=== PATIENT | female | born 1970 | race Caucasian/White ===

== ENCOUNTER 2020-09-16 16:12 | Outpatient (REF) | payer MEDICAID, SELFPAY ==
[2020-09-16 17:17] LABS: MANUAL DIFF FLAG NO
[2020-09-16 17:21] LABS: Basophils Absolute Auto 0.1 X10*3/uL (0.0-0.2); Basophils Percent Auto 1.3 % (0-2); Eosinophils Absolute Auto 0.2 X10*3/uL (0.0-0.4); Eosinophils Percent Auto 2.7 % (0-4); Hematocrit 39.1 % (37-47); Hemoglobin 12.8 g/dl (12.0-16.0); Imm Gran Abs Auto 0.02 X10*3/uL (0.00-0.03); Imm Gran Pct Auto 0.3 % (0.0-0.4); Lymphocytes Absolute Auto 2.5 X10*3/uL (1.2-4.9); Lymphocytes Percent Auto 39.6 % (20-40); Mean Corpuscular HGB Conc 32.7 g/dl (31.0-35.0); Mean Corpuscular Hemoglobin 30.5 pg (27.0-33.0); Mean Corpuscular Volume 93.3 fL (80-98); Mean Platelet Volume 9.9 fL (9.4-12.3); Monocytes Absolute Auto 0.3 X10*3/uL (0.1-1.2); Monocytes Percent Auto 5.2 % (2-11); Neutrophils Absolute Auto 3.3 X10*3/uL (2.0-8.3); Neutrophils Percent Auto 50.9 % (45-73); Platelet Count 348 X10*3/uL (160-400); Red Blood Count 4.19 X10*6/uL (4.20-5.50); Red Cell Distribution Width 12.8 % (11.0-16.0); White Blood Count 6.4 X10*3/uL (4.8-10.8)
[2020-09-16 18:05] LABS: Thyroid Stimulating Hormone 1.89 uIU/mL (0.32-4.0)
== END 2020-09-16 16:13 | disposition home or self-care (01) ==
LOC: HO.LAB 16:12
PROVIDERS: PCP Internal Medicine; Visit Provider Internal Medicine
DX: F32.89 Other specified depressive episodes (principal); F41.8 Other specified anxiety disorders; R00.2 Palpitations
CPT/HCPCS: 36415; 84443; 85025

== ENCOUNTER 2020-10-05 11:20 | Outpatient (REF) | payer MEDICAID, SELFPAY ==
--- NOTE | ~2020-10-05 | XR_ITS ---
EXAMINATION: XR SACRUM AND COCCYX CLINICAL INFORMATION: Pain COMPARISON: Lumbar spine x-ray July 2015 TECHNIQUE: 2 views of the sacrum and 2 views of the coccyx were obtained. FINDINGS: There are no fractures. No bone, joint or soft tissue abnormality is demonstrated. XR/XR sacrum coccyx min 2V IMPRESSION: Unremarkable examination.
== END 2020-10-05 11:21 | disposition home or self-care (01) ==
LOC: HO.XRAY 11:20
PROVIDERS: PCP Internal Medicine; Visit Provider Internal Medicine
DX: M53.3 Sacrococcygeal disorders, not elsewhere classified (principal)
CPT/HCPCS: 72220

== ENCOUNTER 2020-10-06 17:32 | Emergency (ER) | payer MEDICAID, SELFPAY ==
[2020-10-06 18:49] VITALS: BP 97/66; PULSE 94; RESP 16; TEMP 36.7; O2SAT 100; BMI 22.2
--- NOTE | 2020-10-06 18:54 | ECG_ITS ---
Test Reason : CHEST PAIN Blood Pressure : / mmHG Vent. Rate : 094 BPM Atrial Rate : 094 BPM P-R Int : 110 ms QRS Dur : 062 ms QT Int : 334 ms P-R-T Axes : 066 040 037 degrees QTc Int : 417 ms Sinus rhythm with short NV Otherwise normal ECG No previous ECGs available Referred By: Generic ED Physician Electronically Signed By:BAM VOGEL
[2020-10-06 19:06] LABS: MANUAL DIFF FLAG NO
[2020-10-06 19:07] LABS: Basophils Absolute Auto 0.1 X10*3/uL (0.0-0.2); Basophils Percent Auto 0.8 % (0-2); Eosinophils Absolute Auto 0.1 X10*3/uL (0.0-0.4); Eosinophils Percent Auto 1.5 % (0-4); Hematocrit 40.4 % (37-47); Hemoglobin 13.2 g/dl (12.0-16.0); Imm Gran Abs Auto 0.02 X10*3/uL (0.00-0.03); Imm Gran Pct Auto 0.3 % (0.0-0.4); Lymphocytes Absolute Auto 2.4 X10*3/uL (1.2-4.9); Lymphocytes Percent Auto 31.2 % (20-40); Mean Corpuscular HGB Conc 32.7 g/dl (31.0-35.0); Mean Corpuscular Hemoglobin 30.3 pg (27.0-33.0); Mean Corpuscular Volume 92.9 fL (80-98); Mean Platelet Volume 9.4 fL (9.4-12.3); Monocytes Absolute Auto 0.5 X10*3/uL (0.1-1.2); Neutrophils Absolute Auto 4.6 X10*3/uL (2.0-8.3); Neutrophils Percent Auto 60.2 % (45-73); Platelet Count 358 X10*3/uL (160-400); Red Blood Count 4.35 X10*6/uL (4.20-5.50); Red Cell Distribution Width 12.5 % (11.0-16.0); White Blood Count 7.5 X10*3/uL (4.8-10.8)
[2020-10-06 19:27] LABS: Anion Gap 15 (12-20); Blood Urea Nitrogen 10 mg/dL (9-16); Carbon Dioxide 24 mmol/L (22-29); Chloride 104 mmol/L (96-108); Creatinine Clr Calc Pharmacy 56.6; Estimated Glomerular Filt Rate > 60; Glucose Random 99 mg/dL (60-115); Potassium 3.8 mmol/L (3.3-5.1); Sodium 139 mmol/L (135-145)
[2020-10-06 19:32] LABS: Troponin-I High Sensitivity < 3.5 ng/L (<3.5-17.0)
[2020-10-06 19:35] LABS: Glucose Urine UA NEG (NEG); Leukocyte Esterase Urine NEG (NEG); Nitrite Urine NEG (NEG); PH 6.5 (5.0-8.0); Urine Blood NEG (NEG); Urine Ketones NEG (NEG); Urine Protein NEG (NEG-TRACE)
[2020-10-06 19:36] LABS: Appearance Urine CLEAR; Color Urine STRAW
--- NOTE | 2020-10-06 19:49 | ED.BACK ---
HPI - Back Pain/Injury General Chief Complaint: Back Pain/Injury Stated Complaint: Back pain Time Seen by Provider: 10/06/20 17:44 Source: patient Mode of arrival: ambulatory Limitations: no limitations History of Present Illness HPI Narrative: feels a bump on her back. Patient also complaining of palpitations at night MD elicited complaint: back pain Pertinent past history: prior back pain Onset (ago): week(s) Timing: constant Severity: mild Location: lumbar spine Associated symptoms: denies other symptoms Related Data Previous Rx's Medication Instructions Recorded cephalexin [Keflex] 500 mg PO QID #40 cap 10/06/20 Allergies Allergy/AdvReac Type Severity Reaction Status Date / Time No Known Allergies Allergy Verified 10/06/20 19:55 Review of Systems Constitutional: Constitutional: Reports no additional constitutional complaints Eyes: Eyes: Reports no additional eye complaints ENT: Denies dizziness Cardiovascular: Cardiovascular: Reports no additional cardiovascular complaints Respiratory: Respiratory: Reports as per HPI Gastrointestinal: Gastrointestinal: Reports no additional gastrointestinal complaints Genitourinary: Genitourinary: Reports no additional female genitourinary complaints Musculoskeletal: Musculoskeletal: Reports no additional musculoskeletal complaints Integumentary/Breasts: Skin/Breast: Denies rash Neurologic: Reports system reviewed and no additional complaints, except as documented, Denies dizziness and Denies Sensory deficit (Neuro) Psychiatric: Psychiatric: Denies anxiety PMFSH Past Medical History Medical History No active medical problems Social History Social History Alcohol intake: never Smoked in Last 30 Days: No Use of substances other than those prescribed or required for medical reasons: No Advance Directives: No Advance Directives Information Provided: Yes Physical Exam Vital Signs: Vital Signs: Last Vital Signs Temp 98.0 F 10/06/20 18:49 Pulse 94 10/06/20 18:49 Resp 16 10/06/20 18:49 BP 97/66 10/06/20 18:49 Pulse Ox 100 10/06/20 18:49 Body Mass Index 22.2 Const: General: healthy appearing Nutritional Appearance: average body habitus Orientation/consciousness: oriented to person and patient oriented x3 Limitations: no limitations HENMT: Head: Yes normal to inspection Ears: external ears normal General nose exam: Normal external nose present Mouth: Normal oral and palatal mucosa present and oropharynx normal Throat: Yes posterior oropharynx normal Eyes: General: appearance normal, both eyes and all related structures Neck: Other: supple Neck: Yes normal visual inspection Chest: Chest palpation & inspection: normal inspection of the chest Resp: Auscultation: clear to auscultation bilaterally Cardio: Jugular venous distension: no JVD Rate: regular rate Rhythm: regular rhythm Heart sounds: S1 normal heart sound present and S2 normal heart sound present GI: Inspection: Yes normal to inspection Palpation (GI): Soft to palpation, nontender and No hepatosplenomegaly present Auscultation: normal bowel sounds : General: Yes no CVA tenderness Back/Spine/Pelvis: Back: no CVA tenderness Skin: Other: left buttock with old scar now with induration Neuro: General: oriented to person and patient oriented x3 Cranial nerves: Yes CN's II-XII intact bilaterally Motor exam (neuro): 5/5 motor strength present throughout Sensory Exam: No Sensory deficit (Neuro) Extrem: General: Yes normal to inspection Psych: Appearance: grossly normal MDM - Back Pain/Injury MDM Narrative Medical decision making narrative: patient with a 20 years scar due to buttock abscess now with pain and slight induration to the area. Lab Data Result diagrams: 10/06/20 19:01 10/06/20 19:01 Labs: Lab Results 10/06/20 10/06/20 10/06/20 Range/Units 19:01 19:01 19:01 WBC 7.5 (4.8-10.8) X10*3/uL RBC 4.35 (4.20-5.50) X10*6/uL Hgb 13.2 (12.0-16.0) g/dl Hct 40.4 (37-47) % MCV 92.9 (80-98) fL MCH 30.3 (27.0-33.0) pg MCHC 32.7 (31.0-35.0) g/dl RDW 12.5 (11.0-16.0) % Plt Count 358 (160-400) X10*3/uL MPV 9.4 (9.4-12.3) fL Immature Gran % (Auto) 0.3 (0.0-0.4) % Neut % (Auto) 60.2 (45-73) % Lymph % (Auto) 31.2 (20-40) % [place] % (Auto) 6.0 (2-11) % Eos % (Auto) 1.5 (0-4) % Baso % (Auto) 0.8 (0-2) % Lymph # (Auto) 2.4 (1.2-4.9) X10*3/uL [place] # (Auto) 0.5 (0.1-1.2) X10*3/uL Eos # (Auto) 0.1 (0.0-0.4) X10*3/uL Baso # (Auto) 0.1 (0.0-0.2) X10*3/uL Abs Immat Gran (auto) 0.02 (0.00-0.03) X10*3/uL Absolute Neuts (auto) 4.6 (2.0-8.3) X10*3/uL Absolute Nucleated RBC 0.000 (0.0-0.012) X10*3/uL Nucleated RBC % (auto) 0.0 (0.0-0.2) /100WBC Hold Blue Top SEE NOTE Sodium 139 (135-145) mmol/L Potassium 3.8 (3.3-5.1) mmol/L Chloride 104 (96-108) mmol/L Carbon Dioxide 24 (22-29) mmol/L Anion Gap 15 (12-20) BUN 10 (9-16) mg/dL Creatinine 0.81 (0.5-1.4) mg/dL Estim Creat Clear Calc 56.6 Estimated GFR > 60 Random Glucose 99 (60-115) mg/dL Calcium 9.0 (8.4-10.2) mg/dL Troponin I High Sens (<3.5-17.0) ng/L Urine Color Urine Appearance Urine pH (5.0-8.0) Ur Specific [place] (1.005-1.025) Urine Protein (NEG-TRACE) MG/DL Urine Glucose (UA) (NEG) MG/DL Urine Ketones (NEG) MG/DL Urine Blood (NEG) Urine Nitrite (NEG) Ur Leukocyte Esterase (NEG) 10/06/20 10/06/20 Range/Units 19:01 19:10 WBC (4.8-10.8) X10*3/uL RBC (4.20-5.50) X10*6/uL Hgb (12.0-16.0) g/dl Hct (37-47) % MCV (80-98) fL MCH (27.0-33.0) pg MCHC (31.0-35.0) g/dl RDW (11.0-16.0) % Plt Count (160-400) X10*3/uL MPV (9.4-12.3) fL Immature Gran % (Auto) (0.0-0.4) % Neut % (Auto) (45-73) % Lymph % (Auto) (20-40) % [place] % (Auto) (2-11) % Eos % (Auto) (0-4) % Baso % (Auto) (0-2) % Lymph # (Auto) (1.2-4.9) X10*3/uL [place] # (Auto) (0.1-1.2) X10*3/uL Eos # (Auto) (0.0-0.4) X10*3/uL Baso # (Auto) (0.0-0.2) X10*3/uL Abs Immat Gran (auto) (0.00-0.03) X10*3/uL Absolute Neuts (auto) (2.0-8.3) X10*3/uL Absolute Nucleated RBC (0.0-0.012) X10*3/uL Nucleated RBC % (auto) (0.0-0.2) /100WBC Hold Blue Top Sodium (135-145) mmol/L Potassium (3.3-5.1) mmol/L Chloride (96-108) mmol/L Carbon Dioxide (22-29) mmol/L Anion Gap (12-20) BUN (9-16) mg/dL Creatinine (0.5-1.4) mg/dL Estim Creat Clear Calc Estimated GFR Random Glucose (60-115) mg/dL Calcium (8.4-10.2) mg/dL Troponin I High Sens < 3.5 (<3.5-17.0) ng/L Urine Color STRAW Urine Appearance CLEAR Urine pH 6.5 (5.0-8.0) Ur Specific [place] 1.010 (1.005-1.025) Urine Protein NEG (NEG-TRACE) MG/DL Urine Glucose (UA) NEG (NEG) MG/DL Urine Ketones NEG (NEG) MG/DL Urine Blood NEG (NEG) Urine Nitrite NEG (NEG) Ur Leukocyte Esterase NEG (NEG) ECG Data Attestation: I personally reviewed and interpreted this ECG as follows: Interpretation: normal sinus rate of [address] or twave changes Discharge Plan Discharge Clinical Impression: Cellulitis and abscess of buttock Patient Disposition: Home, Self-Care Instructions: Cellulitis (ED) Additional Instructions: warm soaks 4 times a day Prescriptions: New cephalexin [Keflex] 750 mg capsule 500 mg PO QID Qty: 40 RF: 0 Referrals: Sara Carbajal MD [Primary Care Provider] - 2 days
[2020-10-06] MEDS: cephALEXin 500 MG CAPSULE PO (20:37)
[2020-10-06 20:38] LABS: UPreg QC Valid YES; Urine Pregnancy NEGATIVE (NEGATIVE)
== END 2020-10-06 20:42 | disposition home or self-care (01) ==
PROVIDERS: Physician Assistant Medical; Emergency Provider Emergency Medicine; PCP Internal Medicine
DX: L02.31 Cutaneous abscess of buttock (principal); L03.317 Cellulitis of buttock; Z79.899 Other long term (current) drug therapy
CPT/HCPCS: 36415; 80048; 81003; 81025; 84484; 85025; 93005; 99283; 99284

== ENCOUNTER → 2020-10-07 12:51 | Outpatient (BNVA) | payer MEDICAID, SELFPAY | PROVIDERS: PCP Internal Medicine; Visit Provider Internal Medicine Cardiovascular Disease | DX: R00.2 Palpitations (principal) | CPT/HCPCS: 99202 ==

== ENCOUNTER → 2020-11-03 16:03 | Outpatient (REF) | payer MEDICAID, SELFPAY ==
--- NOTE | 2020-11-04 10:30 | ECG_ITS ---
Hook-up date: 2020-11-03 16:10:00 Duration: 47:59:00 Test Indications: PALPITATIONS Medications: 405630 QRS complexes 329 Ventricular ectopics which represent <1 % of total QRS comp. 3003 Supraventricular ectopics which represent 1 % of total QRS comp. * Paced QRS complexs which represent % of total QRS comp. VENTRICULAR ECTOPY 307 Isolated 0 Bigeminal Cycles 11 Couplets 0 Runs 0 Beats in Runs * Beats LONGEST at * BPM at :: -- * Beats FASTEST at * BPM at :: -- SUPRAVENTRICULAR ECTOPY 619 Isolated 400 Couplets 321 Runs 1584 Beats in Runs 31 Beats LONGEST at 122 BPM at 18:45:58 2020-11-04 3 Beats FASTEST at 166 BPM at 17:29:03 2020-11-04 HEART RATES 66 MIN at 06:14:31 2020-11-05 89 AVG 162 MAX at 16:14:34 2020-11-03 LONGEST RR 1.1360 secs at 22:33:51 2020-11-04 S-T LEVELS Channel 1 - 128 mm at 16:10:00 2020-11-03 - 128 mm at 16:10:00 2020-11-03 Channel 2 - 128 mm at 16:10:00 2020-11-03 - 128 mm at 16:10:00 2020-11-03 Channel 3 - 128 mm at 03:52:91 -- - 128 mm at 03:52:91 Underlying rhythm is sinus; Average ventricular rate 89/min; range 66-162/min; About 32% of the time, ventricular rate >100/min; Frequent Premature atrial complexes (1%); isolated beats, couplets, several runs, longest 31 beats at 122/min; Occasional Premature ventricular complexes (<1%); Symptoms described as 'fast' could be from above but exact times don't correlate. Referred By: Sunil Hewitt Overread By: BAM VOGEL
== END ==
LOC: HO.CARD 16:03
PROVIDERS: PCP Internal Medicine; Visit Provider Internal Medicine Cardiovascular Disease
DX: R00.2 Palpitations (principal)
CPT/HCPCS: 93226

== ENCOUNTER → 2020-11-26 12:54 | Outpatient (REF) | payer MEDICAID, SELFPAY ==
--- NOTE | 2020-11-26 12:58 | CA_ITS ---
Transthoracic Echocardiogram Patient (Last, First, Middle): Lynda Soares, Gender: Female Date of : 1970 Age: 50 Procedure Date: 11/26/2020 Procedure Type: Transthoracic Echocardiogram Location: OP Height: 149.86 cm Weight: 49.9 kg BSA: 1.43 m2 Heart Rate: bpm BP: 110 / 60 mmHg Manager Of Selection And Assessment: CHERYL Diallo MD: Sunil Hewitt MD Symptoms: R00.2 - Palpitations Study Quality: Good Conclusions: - Normal biventricular function. - No significant valvular or pericardial pathology. Findings Left Ventricle Normal left ventricular size, thickness, systolic function, and wall motion. The visually estimated ejection fraction is between 55-60%. Diastolic function is normal for age. Right Ventricle Normal right ventricular cavity size and systolic function. Atria The left atrium is normal in size. Aortic Valve Normal aortic valve structure and function. There is no aortic valve stenosis. There is no aortic valve regurgitation. Mitral Valve Normal mitral valve structure and function. There is no mitral valve regurgitation. There is no mitral valve stenosis. Pulmonic Valve Normal pulmonic valve structure and function. There is no pulmonic valve regurgitation. Tricuspid Valve Normal tricuspid valve structure and function. There is no tricuspid valve regurgitation. Tricuspid regurgitation envelope is inadequate for calculation of right ventricular systolic pressure. Normal right atrial pressure. Great Vessels All visible segments of the aorta are normal in size. The visualized portions of the pulmonary artery and branches are normal. Venous The inferior vena cava is normal in size and collapses greater than 50% with inspiration. Pericardium/Pleural There is no evidence of pericardial effusion. Prior Study Comparison No prior study available for comparison. Measurements 2D Linear Measurements IVSd: 0.68 0.6-0.9/0.6-1.0 cm LVIDd: 4.00 3.9-5.3/4.2-5.9 cm LVIDd Index: 2.80 2.4-3.2/2.2-3.1 cm/m2 LVIDs: 2.83 2.0-3.6 cm LVPWd: 0.74 0.7-1.1 cm Ao Root: 3.10 2.1-3.5 cm LA Diam: 2.70 2.7-3.8/3.0-4.0 cm LAIDs Index: 1.89 1.5-2.3 cm/m2 LV Mass: 98.85 67-162/88-224 g LV Mass Index: 69.12 43-95/49-115 g/m2 LVOT Diam: 1.90 3.0+(-)1.3 cm Mitral Valve MV Pk E: 0.67 MV PK A: 0.45 MV Decel Time: 369.00 E/A: 1.50 E'Lateral: 12.80 E'Medial: 11.90 E/E' Med: 5.70 E/E' Lat: 5.30 PHT: 108.00 MVA PHT: 2.04 Decel Donley: 1.82 Aortic Valve AoV Pk Silas: 1.02 AoV Mn Silas: 0.76 AoV VTI: 0.22 AoV Pk Grad: 4.00 Aov Mn Grad: 2.00 ARIEL Cont.VTI: 2.47 LVOT LVOT Pk Silas: 0.89 LVOT Mn Silas: 0.60 LVOT VTI: 0.19 LVOT Pk Grad: 3.00 LVOT Mn Grad: 2.00 LVOT Diam: 1.90 LVOT Area: 2.84 Diastolic Function MV Pk E: 0.67 MV Pk A: 0.45 E/A: 1.50 E'Medial: 11.90 E/E' Med: 5.70 E' Laterial: 12.80 E/E' Lat: 5.30 Great Vessels Aorta Ao Root-2D: 3.10 2.0-3.7 cm Ao Asc: 2.60 2.1-3.4 cm Ao Arch: 2.40 Updated in Other Vendor System with Status of Final Sunil Hewitt MD electronically signed on 11/28/2020 3:02:09 PM with status of Final
== END ==
LOC: HO.CARD 12:54
PROVIDERS: Visit Provider Internal Medicine Cardiovascular Disease
DX: R00.2 Palpitations (principal)
CPT/HCPCS: 93306

== ENCOUNTER → 2021-01-10 15:00 | Outpatient (BNVA) | payer MEDICAID, SELFPAY | PROVIDERS: PCP Internal Medicine; Referring Provider Internal Medicine; Visit Provider Internal Medicine Cardiovascular Disease | DX: R00.2 Palpitations (principal); R00.0 Tachycardia, unspecified; I49.1 Atrial premature depolarization; Z79.899 Other long term (current) drug therapy | CPT/HCPCS: 99212 ==

== ENCOUNTER 2021-02-01 14:39 | Emergency (ER) | payer MEDICAID, SELFPAY ==
[2021-02-01 14:47] VITALS: PULSE 94; RESP 18; TEMP 37.2; O2SAT 98; BMI 22.2
--- NOTE | 2021-02-01 16:29 | ED.EAR ---
HPI - Ear Problem General Chief complaint: Ear Problems Stated complaint: r ear inj Time Seen by Provider: 02/01/21 16:21 Source: patient Mode of arrival: ambulatory Limitations: no limitations History of Present Illness HPI Narrative: Patient comes emergency room complaining of an injury to the right earlobe. Patient states earlier today she was breathing her dog, her lab got very excited to see her, the dog accidentally pulled the earring out by ripping through the skin. Patient states she is not sure if it the earring was pulled out with the dog's paw or the mouth. Patient denies fever or chills Related Data Previous Rx's Medication Instructions Recorded cephalexin [Keflex] 500 mg PO QID #40 cap 10/06/20 metoprolol succinate 25 mg 12.5 mg PO DAILY #30 tab 12/02/20 tablet,extended release 24 hr amoxicillin-pot clavulanate 1 tab PO BID #13 tab 02/01/21 [Augmentin] Allergies Allergy/AdvReac Type Severity Reaction Status Date / Time No Known Allergies Allergy Verified 02/01/21 14:47 Review of Systems Review of Systems: Constitutional : No Weight loss, No Fever, No Chills, No Night Sweats, No Fatigue, No Malaise ENT/Mouth : No Hearing loss, No Ear Pain, No Nasal Congestion, No Sinus Pain, No Hoarseness, No sore throat, No Rhinorrhea, No Swallowing Difficulty Eyes: No Eye Pain, No Swelling, No Redness, No Foreign Body, No Discharge, No Vision Changes Cardiovascular : No Chest Pain, No SOB, No Dyspnea on Exertion, No Orthopnea, No Edema, No Palpitations Respiratory : No Cough, No Sputum, No Wheezing, No Smoke Exposure, No Dyspnea Gastrointestinal : No Nausea, No Vomiting, No Diarrhea, No Constipation, No abdominal Pain, No Hematochezia, No Melena Genitourinary : no irregular bleeding, No Dysuria, No Urinary Frequency, No Hematuria, No Urinary Incontinence, No Urgency, No Flank Pain, No Urinary Flow Changes, No Hesitancy Musculoskeletal : No joint pain, No Myalgias, No Joint Swelling Skin : Earring stools/rib through the earlobe Neuro : No Weakness, No Numbness, No Paresthesias, No Loss of Consciousness, No Dizziness, No Headache Psych : No Anxiety/Panic, No Depression, No SI/HI/AH/VH, No Social Issues, Heme/Lymph: No Bruising, No Bleeding,No Lymphadenopathy Endocrine : No Polyuria, No Polydipsia, No Temperature Intolerance [facility] Past Medical History Medical History No active medical problems Surgical History History of removal of cyst Family History Family History (Updated 10/07/20 @ 13:08 by DARRICK Thurston) Mother Diabetes HTN (hypertension) Tachycardia Father Hypercholesteremia HTN (hypertension) Social History Social History (Updated 01/10/21 @ 15:10 by DARRICK Thurston) Alcohol intake: never Patient Tobacco Use Status: Never used Tobacco Advance Directives: No Advance Directives Information Provided: No Physical Exam Vital Signs: Vital Signs: Last Vital Signs Temp 98.9 F 02/01/21 14:47 Pulse 94 02/01/21 14:47 Resp 18 02/01/21 14:47 Pulse Ox 98 02/01/21 14:47 Body Mass Index 22.2 Appearance: Alert. Oriented X3. No acute distress. Eyes: Pupils equal, round and reactive to light. ENT: Pharynx normal. Neck: Normal inspection. Neck supple. No lymph nodes noted. No crepitus CVS: Normal heart rate and rhythm. Pulses normal. Normal S1 and S2 Respiratory: No respiratory distress. Breath sounds normal. No Wheezing. No rales Abdomen: Soft and nontender. No rigidity. No distention. good BS x4 Skin: Skin warm and dry. Laceration to the right earlobe, lower part of the earlobe split in a Y shape Extremities: No lower extremity edema. No lower extremity edema. No Lacerations. No Rash Neuro: Oriented X 3. No motor deficit. No sensory deficit. Moving all extermities. No slurred speech. Course Course Course Narrative: Patient tolerated well the procedure. Patient instructed to follow-up with her primary care physician or return to the emergency room for stitch removal. Patient was given a tetanus booster, 1st dose of Augmentin Procedures Laceration Laceration 1: Site: other (Ear lobe) Side (If applicable): right Size (cm): 2 Description: irregular Depth: [id number] Local Anesthetic: lidocaine 2% Amount of anesthesia used (mL): 2 Skin layer closed with: nylon Size (cm): 6-0 Number of sutures: 7 Technique: simple, interrupted Discharge Plan Discharge Clinical Impression: Laceration Patient Disposition: Home, Self-Care Instructions: Laceration (ED) Additional Instructions: If you see any signs of infection such as redness, pus drainage, if you have fever chills, please return immediately to the emergency room. Your stitches need to be removed in 7-10 days. You may go with her primary care physician or return to the emergency room. Please follow-up with your primary care physician tomorrow. If you have any worsening or new symptoms, please return to the emergency room or call 911 Prescriptions: New amoxicillin-pot clavulanate [Augmentin] 875-125 mg tablet 1 tab PO BID Qty: 13 RF: 0 No Action metoprolol succinate [Toprol XL] 25 mg tablet extended release 24 hr 12.5 mg PO DAILY Qty: 30 RF: 0 cephalexin [Keflex] 750 mg capsule 500 mg PO QID Qty: 40 RF: 0
[2021-02-01] MEDS: Lidocaine HCl 2 % MPF 5 ML VIAL INFILTRATI (16:36)
[2021-02-01] MEDS: Diphth,Pertus(ACell),Tet Adult 0.5 ML SYRINGE IM (16:36)
[2021-02-01] MEDS: Amoxicillin/Potassium Clav 875 MG TABLET PO (16:36)
== END 2021-02-01 17:18 | disposition home or self-care (01) ==
PROVIDERS: Emergency Provider Emergency Medicine; PCP Internal Medicine
DX: S01.311A Laceration without foreign body of right ear, initial encounter (principal); W54.8XXA Other contact with dog, initial encounter; Y93.9 Activity, unspecified; Y92.9 Unspecified place or not applicable; Y99.9 Unspecified external cause status
CPT/HCPCS: 12011; 90471; 90715; 99283; 99284

== ENCOUNTER 2021-02-10 13:03 | Emergency (ER) | payer MEDICAID, SELFPAY ==
[2021-02-10 13:16] VITALS: BP 104/63; PULSE 72; RESP 16; TEMP 36.6; O2SAT 100; BMI 22.2
--- NOTE | 2021-02-10 13:52 | ED.SKABFB ---
HPI - Skin/Abscess/Foreign Bdy General Chief complaint: Skin/Abscess/Foreign Body Stated complaint: suture removal Time Seen by Provider: 02/10/21 13:25 Source: patient Mode of arrival: ambulatory Limitations: no limitations History of Present Illness HPI narrative: Here for suture removal right ear. No complaints. Related Data Previous Rx's Medication Instructions Recorded cephalexin 750 mg capsule (Keflex) 500 mg PO QID #40 cap 10/06/20 metoprolol succinate 25 mg 12.5 mg PO DAILY #30 tab 12/02/20 tablet,extended release 24 hr (Toprol XL) amoxicillin 875 mg-potassium 1 tab PO BID #13 tab 02/01/21 clavulanate 125 mg tablet (Augmentin) Allergies Allergy/AdvReac Type Severity Reaction Status Date / Time No Known Allergies Allergy Verified 02/01/21 14:47 Review of Systems Review of Systems: Yes all other systems are reviewed and are negative Constitutional: Constitutional: Reports no additional constitutional complaints, Denies body ache(s), Denies chills, Denies fever(s), Denies headache(s) and Denies weakness Eyes: Eyes: Reports no additional eye complaints and Denies change in vision ENT: Reports system reviewed and no additional complaints, except as documented, Denies dizziness, Denies headache(s), Denies nasal congestion, Denies nasal discharge and Denies neck pain Cardiovascular: Cardiovascular: Reports no additional cardiovascular complaints, Denies chest pain, Denies leg edema and Denies dyspnea Respiratory: Respiratory: Reports no additional respiratory complaints, Denies cough and Denies dyspnea Gastrointestinal: Gastrointestinal: Reports no additional gastrointestinal complaints, Denies abdominal pain, Denies diarrhea, Denies nausea and Denies vomiting Genitourinary: Genitourinary: Reports no additional female genitourinary complaints and Denies urinary incontinence Musculoskeletal: Musculoskeletal: Reports no additional musculoskeletal complaints, Denies back pain, Denies arthralgias, Denies joint swelling, Denies neck pain, Denies numbness and Denies tingling Integumentary/Breasts: Skin/Breast: Reports system reviewed and no additional complaints, except as docu and Denies rash Neurologic: Reports system reviewed and no additional complaints, except as documented, Denies Abnormal speech present, Denies dizziness, Denies headache(s), Denies numbness, Denies tingling and Denies weakness [facility] Past Medical History Attestation statement: The following information was validated with the patient. Source: old records reviewed and nursing notes reviewed Medical History No active medical problems Surgical History History of removal of cyst Family History Family History Mother Diabetes HTN (hypertension) Tachycardia Father Hypercholesteremia HTN (hypertension) Social History Social History (Updated 01/10/21 @ 15:10 by DARRICK Thurston) Alcohol intake: never Patient Tobacco Use Status: Never used Tobacco Advance Directives: No Advance Directives Information Provided: No Patient : No Physical Exam Vital Signs: Vital Signs: Last Vital Signs Temp 97.8 F 02/10/21 13:16 Pulse 72 02/10/21 13:16 Resp 16 02/10/21 13:16 BP 104/63 02/10/21 13:16 Pulse Ox 100 02/10/21 13:16 Body Mass Index 22.2 Const: General: cooperative, healthy appearing, comfortable and no acute distress Orientation/consciousness: patient oriented x3 Limitations: no limitations HENMT: Head: Yes normal to inspection Ears: hearing grossly normal bilaterally Outer ear/TM images: 1. sutures present No drainage or redness General nose exam: Normal external nose present Face and sinus: Yes normal facial exam Mouth: Normal oral and palatal mucosa present Throat: Yes posterior oropharynx normal Eyes: General: appearance normal, both eyes and all related structures Pupils: Equal, round and reactive pupils present Neck: Neck: Yes normal visual inspection Chest: Chest palpation & inspection: normal inspection of the chest Resp: Effort & Inspection: normal respiratory effort Auscultation: clear to auscultation bilaterally Cardio: Rate: regular rate Rhythm: regular rhythm Peripheral pulses: Peripheral pulses 2+ throughout GI: Inspection: Yes normal to inspection Palpation (GI): Soft to palpation and nontender Auscultation: normal bowel sounds Back/Spine/Pelvis: Thoracic/Lumbar Spine: thoracic and lumbar spine normal to inspection Skin: General skin exam: no rashes or lesions noted Neuro: General: patient oriented x3, no focal motor deficits and normal sensation to monofilament Cranial nerves: Yes Equal, round and reactive pupils present Cognition (Neuro): normal cognition Speech: No Abnormal speech present Gait exam (Neuro): Normal gait present Motor exam (neuro): 5/5 motor strength present throughout Extrem: General: Yes normal to inspection Course Course Course Narrative: See procedure note Procedures Procedure Narrative Procedure Narrative: Seven sutures removed from right ear lobe Discharge Plan Discharge Clinical Impression: Visit for suture removal Patient Disposition: Home, Self-Care Instructions: Stitches Removal (ED) Additional Instructions: apply neosporin or polysporin daily Prescriptions: No Action metoprolol succinate [Toprol XL] 25 mg tablet extended release 24 hr 12.5 mg PO DAILY Qty: 30 RF: 0 amoxicillin-pot clavulanate [Augmentin] 875-125 mg tablet 1 tab PO BID Qty: 13 RF: 0 cephalexin [Keflex] 750 mg capsule 500 mg PO QID Qty: 40 RF: 0 Referrals: Sara Carbajal MD [Primary Care Provider] - 2 days ED PhysicianRadames [Physician] - 2 days (as needed) Interventions: ED Discharge Assessment Last Done: 02/10/21 13:46 Discharge Date/Time: 02/10/21 13:48
== END 2021-02-10 13:48 | disposition home or self-care (01) ==
LOC: HO.ED 13:38
PROVIDERS: Emergency Provider Emergency Medicine; PCP Internal Medicine
DX: Z48.02 Encounter for removal of sutures (principal)
CPT/HCPCS: 99283

== ENCOUNTER 2021-02-18 13:46 | Outpatient (REF) | payer MEDICAID, SELFPAY ==
[2021-02-18 14:39] LABS: MANUAL DIFF FLAG NO
[2021-02-18 14:44] LABS: Basophils Absolute Auto 0.1 X10*3/uL (0.0-0.2); Basophils Percent Auto 1.2 % (0-2); Eosinophils Absolute Auto 0.1 X10*3/uL (0.0-0.4); Eosinophils Percent Auto 2.1 % (0-4); Hematocrit 40.1 % (37-47); Hemoglobin 13.1 g/dl (12.0-16.0); Imm Gran Abs Auto 0.03 X10*3/uL (0.00-0.03); Imm Gran Pct Auto 0.5 % (0.0-0.4); Lymphocytes Absolute Auto 2.3 X10*3/uL (1.2-4.9); Lymphocytes Percent Auto 38.4 % (20-40); Mean Corpuscular HGB Conc 32.7 g/dl (31.0-35.0); Mean Corpuscular Hemoglobin 30.5 pg (27.0-33.0); Mean Corpuscular Volume 93.3 fL (80-98); Mean Platelet Volume 9.8 fL (9.4-12.3); Monocytes Absolute Auto 0.5 X10*3/uL (0.1-1.2); Monocytes Percent Auto 7.7 % (2-11); Neutrophils Percent Auto 50.1 % (45-73); Platelet Count 327 X10*3/uL (160-400); White Blood Count 6.1 X10*3/uL (4.8-10.8)
[2021-02-18 15:10] LABS: Alanine Aminotransferase 9 U/L (0-31); Alkaline Phosphatase 75 U/L (39-117); Anion Gap 11 (12-20); Aspartate Amino Transferase 19 U/L (5-31); Bilirubin Total 0.3 mg/dL (0.0-1.0); Blood Urea Nitrogen 8 mg/dL (9-16); Calcium 9.1 mg/dL (8.4-10.2); Carbon Dioxide 28 mmol/L (22-29); Chloride 104 mmol/L (96-108); Cholesterol 229 mg/dL; Estimated Glomerular Filt Rate > 60; Glucose Random 71 mg/dL (60-115); HDL Cholesterol 68 mg/dL; LDL Cholesterol Calculated 127 mg/dl; Potassium 4.4 mmol/L (3.3-5.1); Sodium 139 mmol/L (135-145); Triglycerides 172 mg/dL
[2021-02-20 18:36] LABS: TS Negative Control Passed; TS Panel A 3; TS Panel B 1; TS Positive Control Passed; TSpotTB Negative (SeeBelow)
== END 2021-02-18 13:47 | disposition home or self-care (01) ==
LOC: HO.LAB 13:46
PROVIDERS: PCP Internal Medicine; Visit Provider Internal Medicine
DX: Z00.00 Encounter for general adult medical examination without abnormal findings (principal); Z13.31 Encounter for screening for depression; Z11.1 Encounter for screening for respiratory tuberculosis; R00.2 Palpitations
CPT/HCPCS: 36415; 80053; 80061; 85025; 86481

== ENCOUNTER → 2021-04-11 12:14 | Outpatient (BNVA) | payer MEDICAID, SELFPAY | PROVIDERS: PCP Internal Medicine; Visit Provider Physician Assistant | DX: Z12.11 Encounter for screening for malignant neoplasm of colon (principal) | CPT/HCPCS: 99202 ==

== ENCOUNTER → 2021-10-20 14:31 | Outpatient (BNVA) | payer MEDICAID, SELFPAY | PROVIDERS: PCP Internal Medicine; Referring Provider Internal Medicine; Visit Provider Internal Medicine Cardiovascular Disease | DX: R00.2 Palpitations (principal) | CPT/HCPCS: 93005; 99212 ==

== ENCOUNTER 2022-11-04 10:44 | Emergency (ER) | payer OTHER, SELFPAY ==
[2022-11-04 11:13] VITALS: BP 123/78; PULSE 92; RESP 18; TEMP 36.2; O2SAT 99; BMI 22.4
--- NOTE | 2022-11-04 12:30 | ED.EXTPRO ---
HPI - Extremity Problem General Chief complaint: Extremity Injury, Upper Stated complaint: pain in both arms, cant lift them Time Seen by Provider: 11/04/22 12:09 History of Present Illness HPI Narrative: Patient complains of pain in bilateral upper arms, she has had no injury, it did begin after working out in the gym but she is not sure if that is connected She denies any numbness weakness or tingling she denies any joint swelling she denies any redness or warmth or fever, no other muscle or joint pains in any other limb Related Data Previous Rx's Medication Instructions Recorded metoprolol succinate 25 mg 12.5 mg PO DAILY #30 tabs 12/02/20 tablet,extended release 24 hr (Toprol XL) bisacodyl 5 mg tablet,delayed 10 mg PO ONCE colonoscopy prep 1 04/11/21 release (Dulcolax (bisacodyl)) day #2 tabs polyethylene glycol 3350 17 238 g PO ONCE 1 day #238 grams 04/11/21 gram/dose oral powder (Miralax) acetaminophen 500 mg tablet 1,000 mg PO TID PRN pain #30 tabs 11/04/22 ibuprofen 800 mg tablet 800 mg PO Q8H PRN pain #20 tabs 11/04/22 oxycodone 5 mg tablet 5 mg PO Q6H PRN pain #7 tabs 11/04/22 Allergies Allergy/AdvReac Type Severity Reaction Status Date / Time morphine AdvReac Anxiety Verified 11/04/22 11:18 FOR[facility] Past Medical History Source: nursing notes reviewed Medical History No active medical problems Surgical History History of removal of cyst Family History Family History Mother Diabetes HTN (hypertension) Tachycardia Father Hypercholesteremia HTN (hypertension) Social History Social History Household Members Other:: single 1 son Alcohol intake: never Patient Tobacco Use Status: Never used Tobacco Advance Directives: No Advance Directives Information Provided: No Physical Exam Vital Signs: Vital Signs: Last Vital Signs Temp 97.1 F 11/04/22 11:13 Pulse 92 11/04/22 11:13 Resp 18 11/04/22 11:13 BP 123/78 11/04/22 11:13 Pulse Ox 99 11/04/22 11:13 O2 Del Method Room Air 11/04/22 11:13 BMI result Body Mass Index 22.4 General appearance comfortable no distress The head is normocephalic atraumatic Neck is supple and nontender Respiratory no distress The back full range of motion without evidence of discomfort The extremities full range of motion x4 with out swelling or deformity Bilateral upper arms, both arms are completely normal in appearance, both distal biceps tendon insertions part tender as well as some tenderness to distal biceps, there is no redness no warmth there is no discomfort with full range of motion in shoulder and elbow, neurovascular intact distal, no rashes Neuro no focal motor sensory deficits Course Course Course Narrative: Well-appearing patient with tenderness in both distal biceps area, which is where her pain is, likely a biceps tendinitis, no sign of any infection, no joint showing any sign of swelling or discomfort with movement and patient will be treated with anti-inflammatory and analgesic Discharge Plan Discharge Clinical Impression: Biceps tendinitis Patient Disposition: Home, Self-Care Additional Instructions: Pain is likely inflammation of biceps tendons, possibly from exercising but often you do not know the cause This is usually self-limited, anti-inflammatory should help Use pain medicine if needed Follow with orthopedist for further evaluation Return any time any change or worse condition or any concerns Prescriptions: New ibuprofen 800 mg tablet 800 mg PO Q8H PRN (Reason: pain) Qty: 20 0RF acetaminophen 500 mg tablet 1,000 mg PO TID PRN (Reason: pain) Qty: 30 0RF oxycodone 5 mg tablet 5 mg PO Q6H PRN (Reason: pain) Qty: 7 0RF Rx Instructions: Partial Fill upon patient request. No Action metoprolol succinate [Toprol XL] 25 mg tablet extended release 24 hr 12.5 mg PO DAILY Qty: 30 0RF bisacodyl [Dulcolax (bisacodyl)] 5 mg tablet,delayed release (DR/EC) 10 mg PO ONCE 1 Days Qty: 2 0RF Rx Instructions: Take 2 tablets by mouth at 12:00pm the day before your procedure. polyethylene glycol 3350 [Miralax] 17 gram/dose powder 238 g PO ONCE 1 Days Qty: 238 0RF Rx Instructions: Take as directed by mouth the day before your procedure. Referrals: Yefri Restrepo MD [Physician] - (Biceps tendinitis) Stand Alone Forms: Work/School Release
== END 2022-11-04 13:02 | disposition home or self-care (01) ==
PROVIDERS: Emergency Provider Emergency Medicine; PCP Internal Medicine
DX: M75.22 Bicipital tendinitis, left shoulder (principal); M75.21 Bicipital tendinitis, right shoulder; M79.602 Pain in left arm; M79.601 Pain in right arm
CPT/HCPCS: 99282; 99283

== ENCOUNTER → 2023-01-10 07:35 | Outpatient (BNVA) | payer MEDICAID, SELFPAY | PROVIDERS: PCP Internal Medicine; Referring Provider Internal Medicine; Visit Provider Surgery | DX: L05.91 Pilonidal cyst without abscess (principal) | CPT/HCPCS: 99202 ==

== ENCOUNTER → 2023-01-17 08:07 | Outpatient (BNVA) | payer MEDICAID, SELFPAY | PROVIDERS: PCP Internal Medicine; Visit Provider Surgery | DX: L05.91 Pilonidal cyst without abscess (principal) | CPT/HCPCS: 99212 ==

== ENCOUNTER 2023-05-03 14:28 | Outpatient (REF) | payer MEDICAID, SELFPAY ==
[2023-05-03 15:33] LABS: Influenza A PCR NEGATIVE (Negative); Influenza B PCR NEGATIVE (Negative); Resp Syncy Virus RNA Qual PCR NEGATIVE (Negative); SARS COV2 PCR INHOUSE NEGATIVE (Negative)
== END 2023-05-03 14:29 | disposition home or self-care (01) ==
LOC: HO.LAB 14:28
PROVIDERS: PCP Internal Medicine; Visit Provider Internal Medicine
DX: Z11.52 Encounter for screening for COVID-19 (principal)
CPT/HCPCS: 0241U

== ENCOUNTER 2024-01-14 11:33 | Outpatient (REF) | payer MEDICAID, SELFPAY | END 2024-01-14 11:34 | disposition home or self-care (01) | LOC: HO.LAB 11:33 | PROVIDERS: PCP Internal Medicine; Visit Provider Internal Medicine | DX: R30.0 Dysuria (principal) | CPT/HCPCS: 87086; 87147 ==